=== PATIENT | male | born 1965 | race Caucasian/White ===

== ENCOUNTER 2022-07-22 07:55 | Emergency (ER) | payer SELFPAY ==
[~2022-07-22] VITALS: Ht 172.7 cm; Wt 104.3 kg
[2022-07-22 08:01] VITALS: BP 123/76
--- NOTE | 2022-07-22 08:20 | NUR ---
Pt to room from triage, attached to SaO2 and B/P monitor. Pt states unable to urinate since 0200 today, states that he has had this problem before.
--- NOTE | 2022-07-22 08:25 | NUR ---
Dr Kamara at bedside.
[2022-07-22] MEDS ORDERED: TAMS0.4C96 PO (08:30)
--- NOTE | 2022-07-22 08:45 | NUR ---
16 Fr Parks catheter inserted without diff by [employer] student and instructor. Urine output 350 ml. Specimen obtained and sent to lab
[2022-07-22 09:00] LABS: BASOPHILS # (AUTO) 0.1 K/uL (0.00-0.22); BASOPHILS % (AUTO) 0.8 % (0.0-2.0); EOSINOPHILS % (AUTO) 0.5 % (0.0-4.0); HEMATOCRIT 45.1 % (36-52); HEMOGLOBIN 15.2 g/dL (12.0-18.0); LYMPHOCYTES # (AUTO) 0.9 K/uL (2.0-11.5); LYMPHOCYTES % (AUTO) 9.2 % (20.5-51.1); MEAN CORPUSCULAR HEMOGLOBIN 29 pg (27-31); MEAN CORPUSCULAR HGB CONC 34 g/dL (33-37); MEAN CORPUSCULAR VOLUME 85.5 fL (80-94); MONOCYTES # (AUTO) 0.4 K/uL (0.8-1.0); MONOCYTES % (AUTO) 4.3 % (1.7-9.3); NEUTROPHILS # (AUTO) 8.4 K/uL (1.8-7.7); NEUTROPHILS % (AUTO) 85.2 % (42.2-75.2); PLATELET COUNT (AUTO) 275 K/uL (140-450); RED BLOOD CELL COUNT(AUTO) 5.27 MIL/uL (4.20-6.10); RED CELL DISTRIBUTION WIDTH 13.3 % (11.6-13.7); WHITE BLOOD COUNT (AUTO) 9.8 K/uL (4.8-10.8)
[2022-07-22 09:07] LABS: ANION GAP 14.1 (8-16); CREATININE 1.1 mg/dL (0.6-1.3); POTASSIUM 4.1 mmol/L (3.5-5.1)
[2022-07-22 09:08] LABS: APPEARANCE,URINE CLEAR (CLEAR); BILIRUBIN,URINE NEGATIVE (NEGATIVE); BLOOD, URINE LARGE (NEGATIVE); COLOR,URINE YELLOW (YELLOW); LEUKOCYTE ESTERASE ,URINE TRACE (NEGATIVE); NITRITE, URINE NEGATIVE (NEGATIVE); PH,URINE 5.5 (5.0-9.0); UGLUCOSE NEGATIVE (NEGATIVE)
[2022-07-22 09:23] LABS: OTHER CASTS, URINE None Seen /LPF (None Seen); RBC,URINE 11-20 (MOD) /HPF (0-5); WBC,URINE 0-5 /HPF (0-5)
--- NOTE | 2022-07-22 10:00 | NUR ---
Patient discharged with v/s stable. Written and verbal after care instructions given and explained. Patient verbalized understanding. Ambulatory with steady gait. All questions addressed prior to discharge. Advised to follow up with PMD. Pt given leg bad with instructions and demonstration in use. Given Rx of flomax and instruction in use. Instructed in importance of leaving fletcher cath in place until F/U with MD. Pt verbalized understanding
[2022-07-22 10:03] VITALS: BP 156/96
== END 2022-07-22 10:00 | disposition home or self-care (01) ==
LOC: MED 07:55
DX: R33.9 Retention of urine, unspecified (principal); N40.0 Benign prostatic hyperplasia without lower urinary tract symptoms
CPT/HCPCS: 36415; 51702; 80048; 81001; 85025; 87086; 99284

== ENCOUNTER 2023-07-26 23:40 | Emergency (ER) | payer OTHER ==
[~2023-07-26] VITALS: Ht 172.7 cm; Wt 97.1 kg
[~2023-07-26 23:40] MED LIST: TAMS0.4C96 PO
[2023-07-26 23:45] VITALS: BP 132/82; PULSE 91; RESP 17; TEMP 98; O2SAT 97
[2023-07-27 01:56] LABS: APPEARANCE,URINE CLEAR (CLEAR); BILIRUBIN,URINE NEGATIVE (NEGATIVE); BLOOD, URINE TRACE-I (NEGATIVE); COLOR,URINE YELLOW (YELLOW); LEUKOCYTE ESTERASE ,URINE 1+ (NEGATIVE); NITRITE, URINE NEGATIVE (NEGATIVE); PROTEIN,URINE NEGATIVE (NEGATIVE); UGLUCOSE NEGATIVE (NEGATIVE); UROBILINOGEN,URINE 0.2 EU/dL (0.2 - 1)
[2023-07-27 02:03] LABS: BACTERIA,URINE 10-30 (MOD) /HPF (None Seen); MUCUS,URINE 1+ /LPF (None Seen); RBC,URINE 0-5 /HPF (0-5); SQUAMOUS EPITHELIAL CELL,UR 0-3 (FEW) /LPF (0-3 (FEW))
[2023-07-27 02:14] VITALS: O2SAT 98
[2023-07-27] MEDS ORDERED: LIDOCAINE MPF 1% 5 ML ONE (02:18)
[2023-07-27] MEDS ORDERED: cefTRIAXone 1,000 MG VIAL ONE (02:18)
[2023-07-27] MEDS: cefTRIAXone 1,000 MG in LIDOCAINE MPF 1% 2.1 ML IM ONE (02:21)
[2023-07-27] MEDS ORDERED: CIPR500T4 PO (02:30)
[2023-07-27 02:42] VITALS: BP 142/92; PULSE 81; RESP 17; TEMP 97.9; O2SAT 98
== END 2023-07-27 02:42 | disposition home or self-care (01) ==
LOC: MED 23:40
DX: N39.0 Urinary tract infection, site not specified (principal); R33.9 Retention of urine, unspecified; Z79.899 Other long term (current) drug therapy
CPT/HCPCS: 51702; 81001; 87086; 96372; 99284; J0696; J2001; 99283